=== PATIENT | male | born 1990 | race Caucasian/White ===

== ENCOUNTER 2021-04-29 08:58 | Outpatient (CLI) | payer OTHER, SELFPAY ==
[2021-04-29 09:51] LABS: SARS-CoV-2 Ag Negative (Negative)
== END 2021-04-29 08:59 | disposition home or self-care (01) ==
LOC: CHSLAB 09:00
PROVIDERS: PCP Family Medicine; Visit Provider Family Medicine
DX: Z20.822 Contact with and (suspected) exposure to COVID-19 (principal)
CPT/HCPCS: 87426; C9803

== ENCOUNTER 2021-06-09 09:56 | Outpatient (CLI) | payer OTHER, SELFPAY ==
[2021-06-09 11:15] LABS: SARS-CoV-2 RNA PCR Negative (Negative)
== END 2021-06-09 09:57 | disposition home or self-care (01) ==
LOC: CHSLAB 09:59
PROVIDERS: PCP Family Medicine; Visit Provider Nurse Practitioner
DX: R50.9 Fever, unspecified (principal); Z20.822 Contact with and (suspected) exposure to COVID-19
CPT/HCPCS: C9803; U0003; U0005

== ENCOUNTER 2022-02-04 07:51 | Outpatient (CLI) | payer OTHER, SELFPAY ==
[2022-02-05 07:20] LABS: Post Vasectomy Sperm Presence None Seen (None Seen)
== END 2022-02-04 07:52 | disposition home or self-care (01) ==
LOC: CHSLAB 07:54
PROVIDERS: PCP Family Medicine; Visit Provider Family Medicine
DX: Z30.09 Encounter for other general counseling and advice on contraception (principal)
CPT/HCPCS: 88160; 89321